=== PATIENT | female | born 1935 | race Caucasian/White ===

== ENCOUNTER 2018-05-11 12:12 | Outpatient (RCR) | payer MEDICARE | END 2018-05-30 | LOC: M CR 12:12 → M PR 05-18 14:50 | DX: J43.2 Centrilobular emphysema (principal) | CPT/HCPCS: G0424 ==

== ENCOUNTER 2018-06-01 13:14 | Outpatient (RCR) | payer MEDICARE | END 2018-06-30 | LOC: M PR 13:14 | DX: J43.2 Centrilobular emphysema (principal) | CPT/HCPCS: G0424 ==

== ENCOUNTER 2018-07-03 13:02 | Outpatient (RCR) | payer MEDICARE | END 2018-07-31 | LOC: M PR 13:02 | DX: J43.2 Centrilobular emphysema (principal) | CPT/HCPCS: G0424 ==

== ENCOUNTER 2018-08-07 14:37 | Outpatient (RCR) | payer MEDICARE | END 2018-08-30 | LOC: M PR 14:37 | DX: J43.2 Centrilobular emphysema (principal) | CPT/HCPCS: G0424 ==